=== PATIENT | male | born 1945 | race Caucasian/White ===

== ENCOUNTER → 2020-12-29 | Outpatient (CLI) | payer MEDICARE ==
--- NOTE | 2020-12-29 17:36 | ECHOF ---
Referral Reason:R94.31 Abnormal EKG MEASUREMENTS -------- HEIGHT: 157.5 cm WEIGHT: 83.9 kg BP: IVSd: 1.2 cm (0.6 - 1.1) LVIDd: 4.3 cm (3.9 - 5.3) LVPWd: 1.1 cm (0.6 - 1.1) EDV(Teich): 81 ml IVSs: 1.2 cm LVIDs: 3.0 cm LVPWs: 1.6 cm %IVS Thck: 2 % ESV(Teich): 34 ml EF(Teich): 58 % %FS: 30 % SV(Teich): 47 ml LA Diam: 3.4 cm (2.7 - 3.8) RVIDd: 2.8 cm (< 3.3) LALs A4C: 5.2 cm LAAs A4C: 18.2 cm LAESV A-L A4C: 54 ml LAESV MOD A4C: 51 ml LALs A2C: 5.7 cm LAAs A2C: 19.8 cm LAESV A-L A2C: 58 ml LAESV MOD A2C: 55 ml LAESV(A-L): 59 ml LAESV Index (A-L): 31.95 ml/m Ao Diam: 3.0 cm (2.0 - 3.7) LA Diam: 3.9 cm (2.7 - 3.8) AV Cusp: 1.5 cm (1.5 - 2.6) EPSS: 0.4 cm MV E Aj: 0.56 m/s MV DecT: 189 ms MV Dec [place]: 3.0 m/s MV A Aj: 0.81 m/s MV E/A Ratio: 0.69 MV PHT: 55 ms TR Vmax: 1.56 m/s TR maxP.70 mmHg RAP: 5.00 mmHg RVSP: 14.70 mmHg MV EF SLOPE: 76.94 mm/s (70 - 150) MV EXCURSION: 14.23 mm (> 18.000) FINDINGS -------- Sinus rhythm. This was a technically good study. LV size, wall thickness and systolic function are normal, with an EF greater than 55%. The left georgi tricular size is normal. The right ventricle is normal in size. LA is midly dilated 29-33ml/m2. The right atrial size is normal. The aortic valve is trileaflet, and appears structurally normal. No aortic stenosis or regurgitation. Mild mitral regurgitation is present. Mild tricuspid regurgitation present. Right ventricular systolic pressure is normal at < 35 mmHg. Trace/mild (physiologic) pulmonic regurgitation. There is no pericardial effusion. CONCLUSIONS -------- 1. LV size, wall thickness and systolic function are normal, with an EF greater than 55%. 2. The left ventricular size is normal. 3. The right ventricle is normal in size. 4. LA is midly dilated 29-33ml/m2. 5. The right atrial size is normal. 6. The aortic valve is trileaflet, and appears structurally normal. No aortic stenosis or regurgitati on. 7. Mild mitral regurgitation is present. 8. Mild tricuspid regurgitation present. 9. Trace/mild (physiologic) pulmonic regurgitation. 10. There is no pericardial effusion. MANAGER OF DISASTER RECOVERY: Geni Lawson RDCS
== END | disposition home or self-care (01) ==
LOC: RADECHMAIN 11:46
PROVIDERS: ATTEND Family Medicine
DX: I34.0 Nonrheumatic mitral (valve) insufficiency (principal); I07.1 Rheumatic tricuspid insufficiency; R94.31 Abnormal electrocardiogram [ECG] [EKG]
CPT/HCPCS: 93306

== ENCOUNTER → 2021-02-22 | Outpatient (CLI) | payer MEDICARE ==
[2021-02-22 15:49] LABS: ALT 20 U/L (10-49); AST 18 U/L (14-35); Chol/HDL Ratio 3.03 Ratio; LDL Cholesterol,Calculated 51.9 mg/dL (0.0-131.0); VLDL Calculation 18.42 mg/dL (5.00-40.00)
== END | disposition home or self-care (01) ==
LOC: LABWHC1 07:52
PROVIDERS: ATTEND Internal Medicine Interventional Cardiology
DX: E78.2 Mixed hyperlipidemia (principal)
CPT/HCPCS: 36415; 80061; 84450; 84460

== ENCOUNTER → 2021-04-28 | Outpatient (CLI) | payer MEDICARE ==
--- NOTE | 2021-04-28 15:28 | US ---
EXAMINATION TYPE: US kidneys/renal and bladder DATE OF EXAM: 04/28/2021 COMPARISON: NONE CLINICAL HISTORY: N18.2 CKD Stage 2. EXAM MEASUREMENTS: Right Kidney: 11.3 x 4.8 x 5.4 cm Left Kidney: 12.8 x 5.3 x 5.3 cm Right Kidney: No hydronephrosis or masses seen Left Kidney: echogenic shadowing area lower pole, there appears to be a cluster of stones, measures l arge Bladder: wnl as seen, not fully distended There is no evidence for hydronephrosis at this point in time. No masses are identified. The urina ry bladder is anechoic. Bilateral ureteral jets are seen. IMPRESSION: Nonobstructing left-sided nephrolithiasis.
== END | disposition home or self-care (01) ==
LOC: RADUSWWP 14:48
PROVIDERS: ATTEND Internal Medicine
DX: N18.2 Chronic kidney disease, stage 2 (mild) (principal); N20.0 Calculus of kidney
CPT/HCPCS: 76770

== ENCOUNTER → 2021-09-06 | Outpatient (CLI) | payer MEDICARE ==
[2021-09-06 15:57] LABS: ALT 16 U/L (10-49); AST 16 U/L (14-35); African American GFR (CKD) 61.7 (60.0-200.0); Albumin 4.2 g/dL (3.8-4.9); Albumin/Globulin Ratio 2.07 (1.60-3.17); Alkaline Phosphatase 57 U/L (41-126); BUN/Creat Ratio 23.21 Ratio (12.00-20.00); Blood Urea Nitrogen 30.4 mg/dL (9.0-27.0); Calcium 9.5 mg/dL (8.7-10.3); Carbon Dioxide 25.7 mmol/L (20.0-27.5); Chloride 106 mmol/L (96-109); Chol/HDL Ratio 3.14 Ratio; Glucose 111 mg/dL (70-110); LDL Cholesterol,Calculated 53.4 mg/dL (0.0-131.0); Non-African American GFR(CKD) 53.3 (60.0-200.0); Potassium 4.7 mmol/L (3.5-5.5); Sodium 143 mmol/L (135-145); Total Protein 6.2 g/dL (6.2-8.2)
== END | disposition home or self-care (01) ==
LOC: LABWHC1 07:13
PROVIDERS: ATTEND Nurse Practitioner Adult Health
DX: I10 Essential (primary) hypertension (principal); E78.2 Mixed hyperlipidemia
CPT/HCPCS: 36415; 80053; 80061

== ENCOUNTER → 2021-11-21 | Outpatient (CLI) | payer MEDICARE ==
--- NOTE | 2021-11-21 21:19 | CT ---
EXAMINATION TYPE: CT urogram wo/w con CT DLP: 3890 mGycm, Automated exposure control for dose reduction was used. DATE OF EXAM: 11/21/2021 4:34 PM COMPARISON: CLINICAL INDICATION:Male, 76 years old with history of R97.20 ELEVATED PSA LEVELS;, Hematuria. Elevat ed PSA levels. TECHNIQUE: Urogram with imaging of the abdomen and pelvis. Coronal and sagittal reformats were performed. 2D and 3D reconstructions are performed to assist visualization of the urinary tract on a separate workstat ion. Contrast used:70cc mL of Isovue 300 with IV Contrast, Oral contrast used: None. FINDINGS: GENITOURINARY: RIGHT KIDNEY AND URETER: No calculi. No hydronephrosis or hydroureter. No renal mass or other lesions . No urothelial lesions: no filling defect, dilation, stricture or wall thickening. LEFT KIDNEY AND URETER: Multiple renal pelvis and calyx calculi. No mass identified. Renal calculi me asuring up to 22 x 12 mm. There is a hyperdense 12 mm cyst measuring 72 Hounsfield units on noncontra st imaging. Consistent with a proteinaceous/hemorrhagic cyst. No hydronephrosis or hydroureter. No re nal mass or other lesions. No urothelial lesions: no filling defect, dilation, stricture or wall thic [place]. URINARY BLADDER: Limited evaluation secondary to partial filling of the bladder with excreted IV cont rast. No calculi or obvious mass. REPRODUCTIVE: Prominent measuring up to 4.9 cm in transverse dimension. There is median lobe hypertro phy changes. ABDOMEN LIVER: Unremarkable. GALLBLADDER AND BILE DUCTS: The gallbladder is surgically absent. PANCREAS: Unremarkable. SPLEEN: Unremarkable. ADRENAL GLANDS: Left adrenal mass with heterogenous appearance and some calcification measuring 6.4 b y 4.5 x 4.2 cm. STOMACH AND BOWEL: No evidence of bowel obstruction. Gastric lumen is distended with ingested conten ts. Scattered clonic diverticula are seen throughout the colon. Appendix is normal. Third portion duo denal diverticulum noted extending posteriorly towards the aorta. PERITONEUM: No evidence of pneumoperitoneum, free fluid, or adenopathy. VASCULATURE: No aortic aneurysm. Scattered atherosclerosis of the arterial vasculature. MUSCULOSKELETAL: No acute osseous abnormalities. Slightly heterogenous appearance to the bone marrow throughout the spine. Benign-appearing lucent lesion in the left proximal femur with thin sclerotic r im. There are several lucencies within the vertebral column including L4, L1, T12, and T8. SOFT TISSU E/ABDOMINAL WALL: Unremarkable. LOWER CHEST: Streaky atelectasis is seen within lung bases. Mild heart is mildly enlarged for size. C oronary artery atherosclerosis is present. IMPRESSION: 1. Left renal pelvis and calyces calculi. No evidence of hydronephrosis. 2. No evidence of urothelial mass/lesion. 3. Left adrenal heterogenous mass measuring up to 6.4 cm with some calcifications. Further evaluation with MRI with and without IV contrast and serum markers is recommended. Findings may represent malig mignon versus sequela of prior trauma. Correlation with priors at outside institutions may be of benef it. 4. Nonspecific lucencies seen scattered throughout the spine. Involving T8, T12, L1 and L4. The absen ce of known diagnosis of cancer this may represent contrast focal fat. These can be further evaluated with MRI of the thoracic and lumbar spine with and without IV contrast if clinically warranted.
== END | disposition home or self-care (01) ==
LOC: RADCTMAIN 14:04
PROVIDERS: ATTEND Internal Medicine
DX: R97.20 Elevated prostate specific antigen [PSA] (principal)
CPT/HCPCS: 82565; 84520; 74178; 36415; 74400; Q9967

== ENCOUNTER → 2022-02-20 | Outpatient (CLI) | payer MEDICARE ==
--- NOTE | 2022-02-20 12:43 | MR ---
EXAMINATION TYPE: MR chaimine/lspine wo con DATE OF EXAM: 02/20/2022 9:01 AM CLINICAL INDICATION:Male, 76 years old with history of M41.86 FORMS OF SCOLIOSIS, LUMBAR REGION FORMS OF SCOLIOSIS COMPARISON: CT 11/21/2021 TECHNIQUE: Multi planar, multi sequence imaging was performed utilizing: T1-weighted, T2-weighted, a nd turbo inversion recovery imaging of the thoracic and lumbar spine. IV Contrast: None. FINDINGS: Alignment: The thoracic and lumbar vertebral bodies have preserved heights and alignment. No evidenc e of lateral curvature to suggest scoliosis of the visualized spine. Cord: The spinal cord is unremarkable with regards to their signal intensity and morphology. Bones/Discs: Bone signal is within normal limits. Multilevel degenerative disc disease is noted and most pronounced at the L1-L5. Scattered high T2/T1 signal probable vertebral body hemangiomas. Acute Schmorl's node at the superior endplate of L4 suggested with some reactive edema on inversion recover y sequences. THORACIC: No evidence significant spinal canal or neural foraminal stenosis. Spinal cord is within no rmal limits. LUMBAR: L1-L2: No evidence of significant spinal canal stenosis or neural foraminal stenosis. L2-L3: Disc bulge and facet joint arthropathy result in mild spinal canal and mild bilateral neural f oraminal stenosis. L3-L4: Disc bulge and facet joint arthropathy result in mild spinal canal and moderate right and mild left neural foraminal stenosis. L4-L5: Disc bulge and facet joint arthropathy result in no significant spinal canal and moderate left and mild right neural foraminal stenosis. L5-S1: No evidence of significant spinal canal stenosis or neural foraminal stenosis. Other findings: None. IMPRESSION: 1. No definitive evidence of disc herniation or significant spinal canal stenosis. 2. Multilevel disc degeneration with associated osteoarthritic changes worse at L3-L4 on the right a nd L4-L5 on the left with moderate neural foraminal stenosis. 3. No evidence of scoliosis. 4. Acute Schmorl's node at the superior endplate of L4.
== END | disposition home or self-care (01) ==
LOC: RADMRIMAIN 07:35
PROVIDERS: ATTEND Internal Medicine
DX: M51.36 Other intervertebral disc degeneration, lumbar region (principal); M47.816 Spondylosis without myelopathy or radiculopathy, lumbar region; M51.46 Schmorl's nodes, lumbar region; M48.061 Spinal stenosis, lumbar region without neurogenic claudication; M99.73 Connective tissue and disc stenosis of intervertebral foramina of lumbar region; M41.86 Other forms of scoliosis, lumbar region; M41.34 Thoracogenic scoliosis, thoracic region
CPT/HCPCS: 72146; 72148

== ENCOUNTER → 2022-02-20 | Outpatient (CLI) | payer MEDICARE | END | disposition home or self-care (01) | LOC: LABWHC1 07:02 | PROVIDERS: ATTEND Urology | DX: D35.00 Benign neoplasm of unspecified adrenal gland (principal) | CPT/HCPCS: 36415; 82088; 82533; 83835; 84244 ==

== ENCOUNTER → 2022-02-21 | Outpatient (CLI) | payer MEDICARE ==
--- NOTE | 2022-02-22 20:38 | MR ---
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 Adrenal cancer COMPARISON: CT scan abdomen from 11/21/2021. TECHNIQUE: Multiplanar multi-sequence imaging was performed without contrast. Post contrast imaging was performed. IV Contrast: 8 cc Gadavist FINDINGS: LOWER CHEST: No gross irregularity. ABDOMEN Liver: Unremarkable. Gallbladder and Bile ducts: Unremarkable. Pancreas: Unremarkable. Spleen: Unremarkable. Adrenal glands: Enlarged left adrenal mass measuring up to 6.5 x 4.4 x 4.2 cm similar to prior. There is somewhat heterogenous enhancement pattern of this lesion. There appears to be loss of fat plane a gainst the stomach. Kidneys: Left high T2 low T1 renal cysts Stomach and Bowel: Unremarkable as visualized. Peritoneum: No evidence of pneumoperitoneum, free fluid, or adenopathy. Vasculature: Unremarkable. No aortic aneurysm. Abdominal wall: Unremarkable. Musculoskeletal: The osseous structures appear intact. IMPRESSION: Redemonstration of left adrenal mass concerning for malignancy until proven otherwise. This measures similarly at 6.5 x 4.4 cm comparing to prior CT on 11/21/2021. There is loss of fat plane the stomach which is similar to prior CT microinvasion not excluded. No definitive evidence for metastatic diseas e at this time. Consider consider tissue sampling.
== END | disposition home or self-care (01) ==
LOC: RADMRIMAIN 10:48
PROVIDERS: ATTEND Internal Medicine
DX: C74.92 Malignant neoplasm of unspecified part of left adrenal gland (principal); E27.9 Disorder of adrenal gland, unspecified
CPT/HCPCS: 74183; A9585

== ENCOUNTER → 2022-03-19 | Outpatient (CLI) | payer MEDICARE ==
[2022-03-19 10:46] LABS: ALT 20 U/L (10-49); AST 16 U/L (14-35); African American GFR (CKD) 59.5 (60.0-200.0); Albumin 4.3 g/dL (3.8-4.9); Albumin/Globulin Ratio 2.24 (1.60-3.17); Alkaline Phosphatase 59 U/L (41-126); Blood Urea Nitrogen 30.1 mg/dL (9.0-27.0); Calcium 9.6 mg/dL (8.7-10.3); Carbon Dioxide 25.3 mmol/L (20.0-27.5); Chloride 105 mmol/L (96-109); Chol/HDL Ratio 2.92 Ratio; Globulin 1.9 g/dL (1.6-3.3); Glucose 105 mg/dL (70-110); LDL Cholesterol,Calculated 58.3 mg/dL (0.0-131.0); Non-African American GFR(CKD) 51.4 (60.0-200.0); Potassium 4.9 mmol/L (3.5-5.5); Sodium 143 mmol/L (135-145); Total Protein 6.2 g/dL (6.2-8.2)
== END | disposition home or self-care (01) ==
LOC: LABWHC1 07:00
PROVIDERS: ATTEND Internal Medicine Interventional Cardiology
DX: I10 Essential (primary) hypertension (principal); E78.2 Mixed hyperlipidemia
CPT/HCPCS: 36415; 80053; 80061

== ENCOUNTER → 2022-06-22 | Outpatient (CLI) | payer MEDICARE ==
[2022-06-22 09:17] LABS: Protein/Creatinine Ratio,Urine 0.28
[2022-06-22 11:14] LABS: Basophils # (A) 0.05 X 10*3/uL (0.00-0.10); Basophils % (A) 0.9 %; Eosinophils # (A) 0.19 X 10*3/uL (0.04-0.35); Eosinophils % (A) 3.3 %; Immature Grans, Automated 0.4 %; Lymphocytes # (A) 1.36 X 10*3/uL (0.90-5.00); Lymphocytes % (A) 23.9 %; MCHC 32.5 g/dL (32.0-37.0); MCV 92.4 fL (80.0-97.0); Monocytes # (A) 0.53 X 10*3/uL (0.20-1.00); Monocytes % (A) 9.3 %; NRBC Per 100 WBC 0 /100 WBCS (0.0-0.0); Neutrophils # (A) 3.53 X 10*3/uL (1.80-7.70); Neutrophils % (A) 62.2 %; Platelet Count 227 X 10*3/uL (140-440); RBC 4.33 X 10*6/uL (4.40-5.60); RDW 13.2 % (11.5-14.5); WBC 5.68 X 10*3/uL (4.50-10.00)
[2022-06-22 12:10] LABS: ALT 19 U/L (10-49); AST 16 U/L (14-35); African American GFR (CKD) 52.9 (60.0-200.0); Albumin/Globulin Ratio 1.86 (1.60-3.17); Alkaline Phosphatase 79 U/L (41-126); BUN/Creat Ratio 18.24 Ratio (12.00-20.00); Calcium 9.7 mg/dL (8.7-10.3); Carbon Dioxide 25.6 mmol/L (20.0-27.5); Chloride 104 mmol/L (96-109); Chol/HDL Ratio 3.39 Ratio; Globulin 2.2 g/dL (1.6-3.3); Glucose 105 mg/dL (70-110); LDL Cholesterol,Calculated 47.7 mg/dL (0.0-131.0); Non-African American GFR(CKD) 45.6 (60.0-200.0); Phosphorus 3.7 mg/dL (2.4-5.1); Potassium 4.3 mmol/L (3.5-5.5); Sodium 141 mmol/L (135-145); Total Protein 6.2 g/dL (6.2-8.2); Uric Acid 3.8 mg/dL (3.7-8.7)
[2022-06-22 13:24] LABS: Appearance,Urine Clear (Clear); Bilirubin,Urine Negative (Negative); Blood,Urine Moderate (Negative); Color,Urine Yellow (Yellow); Ketones,Urine Negative (Negative); Nitrite,Urine Negative (Negative); PH, Urine 5.5 (5.0-8.0); Specific Gravity,Urine 1.024 (1.001-1.030); Urobilinogen,Urine 0.2 (0.2,1.0)
[2022-06-22 13:48] LABS: Bacteria,Urine None Seen /HPF (None Seen)
== END | disposition home or self-care (01) ==
LOC: LABWHC1 07:25
PROVIDERS: ATTEND Internal Medicine
DX: I12.9 Hypertensive chronic kidney disease with stage 1 through stage 4 chronic kidney disease, or unspecified chronic kidney disease (principal); E11.22 Type 2 diabetes mellitus with diabetic chronic kidney disease; E11.42 Type 2 diabetes mellitus with diabetic polyneuropathy; N18.2 Chronic kidney disease, stage 2 (mild); E78.2 Mixed hyperlipidemia; R11.2 Nausea with vomiting, unspecified
CPT/HCPCS: 36415; 80053; 80061; 81001; 82024; 82043; 82306; 82533; 82570; 83036; 83735; 83970; 84100; 84156; 84439; 84443; 84550; 85025

== ENCOUNTER → 2022-07-27 | Outpatient (CLI) | payer MEDICARE ==
--- NOTE | 2022-07-27 09:34 | MR ---
EXAMINATION TYPE: MR Prostate wo/w con DATE OF EXAM: 07/27/2022 COMPARISON: CT urogram November 21, 2021 INDICATION: Elevated PSA PSA: 8.20 ng/ml on July 04, 2022 increased from 6.70 on February 14, 2022 and 6.20 on June 21, 2021 Recent Biopsy and Date: None Pathology Report (If Applicable): n/a TECHNIQUE: Examination was performed using a 3T MRI without an endorectal coil. Multiparametric imaging was perf ormed with T2 mutliplanar sequences, axial diffusion weighted imaging and dynamic contrast enhanced i maging, utilizing 8.5 mL intravenous Gadavist gadolinium contrast. FINDINGS: PROSTATE VOLUME: 5.0 cm SI x 4.0 cm AP x 5.1 cm LR Vol= 53.4 cc PSA DENSITY: 0.15 ng/ml/cc Enlarged prostate consistent with BPH. Areas of mild diminished signal on ADC mapping seen in the jas ateral peripheral zones. There is more focal 6 mm area of more markedly diminished signal in the left peripheral zone abutting the capsule having T2 hypointensity images 60 and 68 series 802 at mid zone level having. Increased signal on diffusion-weighted imaging. PIRADS 4 lesion. Central transitional zone shows heterogeneity. No suspicious T2 hypointense areas. Prostate capsule is preserved. Seminal vesicles appear within normal limits. Bladder shows mild to mo derate trabeculation and wall thickening. No suspicious bowel dilatation. No free fluid. In the left proximal femur there is round 1.5 cm T2 hy perintense lesion axial image 8 series 201 and coronal image 13 favor a benign etiology correlates to round lucent lesion with thin sclerotic margin on CT favor nonaggressive etiology IMPRESSION: Enlarged prostate consistent with BPH. Suspicious 6 mm lesion left mid zone on prostate M RI Highest Assessment Category: 4 MRI Stage: T0 N0 M0 based on review of pelvic images. False negative rates for MRI range from 5-20% depending on risk profile. Assessment Categories: 1 ? Very low (clinically significant cancer is highly unlikely to be present) 2 ? Low (clinically significant cancer is unlikely to be present) 3 ? Intermediate (the presence of clinically significant cancer is equivocal) 4 ? High (clinically significant cancer is likely to be present) 5 ? Very high (clinically significant cancer is highly likely to be present) Locations: PZ = peripheral zone; TZ = transition zone CZ=central zone; AFS = anterior fibromuscular stroma a=anterior half (i.e. PZa=anterior half of peripheral zone); pm= posterior medial (i.e PZpm) pl = postero-lateral (i.e. PZpl); p = posterior half (i.e. TZp) ; a = anterior half (i.e TZa or P Za) Other: N=no or no; E= equivocal; Y=yes EPE = extraprostatic extension NVB = neurovascular bundle NA = not applicable/not available
== END | disposition home or self-care (01) ==
LOC: RADMRIMAIN 06:49
PROVIDERS: ATTEND Urology
DX: N40.0 Benign prostatic hyperplasia without lower urinary tract symptoms (principal); R97.20 Elevated prostate specific antigen [PSA]
CPT/HCPCS: 72197; A9585

== ENCOUNTER → 2022-09-18 | Outpatient (CLI) | payer MEDICARE ==
[2022-09-18 16:27] LABS: Appearance,Urine Clear (Clear); Bilirubin,Urine Negative (Negative); Blood,Urine Small (Negative); Color,Urine Yellow (Yellow); Ketones,Urine Negative (Negative); Nitrite,Urine Negative (Negative); PH, Urine 6.5; Specific Gravity,Urine 1.024 (1.001-1.030); Urobilinogen,Urine 0.2 E.U./DL
[2022-09-18 16:33] LABS: Bacteria,Urine None Seen (None Seen)
[2022-09-18 16:37] LABS: Basophils # (A) 0.05 X 10*3/uL (0.00-0.10); Basophils % (A) 0.9 %; Eosinophils # (A) 0.09 X 10*3/uL (0.04-0.35); Eosinophils % (A) 1.6 %; HCT 46.5 % (39.6-50.0); HGB 14.3 d/dL (12.0-15.0); Lymphocytes # (A) 1.53 X 10*3/uL (0.90-5.00); Lymphocytes % (A) 27.5 %; MCH 29.1 pg (27.0-32.0); MCHC 30.8 d/dL (32.0-37.0); MCV 94.5 FL (80.0-97.0); Mean Platelet Volume 11.1 FL (9.5-12.2); Monocytes # (A) 0.47 X 10*3/uL (0.20-1.00); Monocytes % (A) 8.4 %; NRBC Per 100 WBC 0 X 10*3/uL (0.00-0.01); Neutrophils % (A) 61.1 %; Platelet Count 191 X 10*3/uL (140-440); RBC 4.92 X 10*6/uL (4.40-5.60); RDW 13.5 % (11.5-14.5); WBC 5.57 X 10*3/uL (4.50-10.00)
[2022-09-18 16:57] LABS: BUN/Creat Ratio 21.87 Ratio (12.00-20.00); Blood Urea Nitrogen 32.8 mg/dL (9.0-27.0); Calcium 9.7 mg/dL (8.7-10.3); Carbon Dioxide 26.4 mmol/L (21.6-31.8); Chloride 106 mmol/L (96-109); Glucose 140 mg/dL (70-110); Potassium 4.4 mmol/L (3.5-5.5); Sodium 142 mmol/L (135-145)
== END | disposition home or self-care (01) ==
LOC: LABPAT 08:13
PROVIDERS: ATTEND Urology
DX: Z01.812 Encounter for preprocedural laboratory examination (principal); R97.20 Elevated prostate specific antigen [PSA]
CPT/HCPCS: 80048; 81001; 85025; 87086

== ENCOUNTER 2022-09-25 10:05 | Day surgery (SDC) | payer MEDICARE ==
--- NOTE | 2022-09-18 16:22 | P.HPIHPCON ---
History of Present Illness H&P Date: 09/18/22 Chief Complaint: elevated PSA This is a 77 yo male with hx of elevated PSA underwent prostate MRI which showed PIRAD 4 lesion at left mid gland. Option of MRI fusion biopsy was discussed with him aware of risk of bleeding, infection and false negative biopsy. He understood all the risk and agreed to proceed with MRI fusion biopsy Consent for Procedure: I have explained the operation/procedure to the patient, including the risks, benefits, side effects, alternative therapies (including not receiving the proposed treatment or service), the likelihood of the patient achieving his/her goals, and potential recuperation problems for the procedure/sedation/analgesia, as well as any blood products, if indicated. I also explained to the patient the risks, benefits and side effects of the alternatives, as well as the risks related to not receiving the proposed procedure, care, treatment, or services. Surgical - Exam - General no distress, no pain - Eyes normal ocular movement, no pale - ENT normal nares, normal mucosa - Respiratory normal expansion, normal respiratory effort Assessment and Plan Assessment: OR for MRI fusion biopsy
[2022-09-19 15:11] VITALS: BMI 26.2
[~2022-09-25 10:05] MED LIST: DEXAMETHASONE SOD PHOSPHATE 4 MG/ML 1 ML VIAL IV ONE; GENTAMICIN 120 MG in SODIUM CHLORIDE 0.9% 100 ML IVPB PRN; HYDROmorphone 0.5 MG/0.5 ML SYRINGE IVP PRN; LACTATED RINGERS 1,000 ML IV SCH; LIDOCAINE 1% (10MG/ML) FOR IV START INTRADERMA PRN; MIDAZOLAM 2 MG/2 ML VIAL IV PRN; ONDANSETRON 4 MG/2 ML VIAL IVP ONE
[2022-09-25 10:50] VITALS: TEMP 97.3
[2022-09-25 11:06] LABS: Glucose,Whole Blood 108 mg/dL (70-110)
[2022-09-25] MEDS ORDERED: PROPOFOL 10 MG/ML 20 ML VIAL IV ONE (11:53)
--- NOTE | 2022-09-25 12:22 | P.OP ---
Date of Procedure: 09/25/22 Preoperative Diagnosis: elevated PSA Postoperative Diagnosis: same Procedure(s) Performed: Prostate MRI fusion biopsies Implants: none Anesthesia: NENO Surgeon: Jared Velasquez Indications for Procedure: This is a 77 yo male with hx of elevated PSA underwent prostate MRI which showed PIRAD 4 lesion at left mid gland. Option of MRI fusion biopsy was discussed with him aware of risk of bleeding, infection and false negative biopsy. He understood all the risk and agreed to proceed with MRI fusion biopsy Description of Procedure: The patient was taken to the operating room and placed in the left lateral decubitus position. The Ze-gen transrectal ultrasound probe was placed intrarectally. It was then placed within the stand of the [employer] MRI/TRUS Fusion for Prostate Biopsy system. The prostate was imaged in both the axial and sagittal planes, revealing a prostate volume of 42 mL. Using the Biopsy gun, 4 biopsies were obtained from the target lesion, there were was one lesion. The remaining 12 biopsies of the peripheral zone were obtained utilizing a standard template. Once the procedure was completed, the ultrasound probe was removed. The patient tolerated the procedure well was taken to the recovery room stable condition
[2022-09-25 13:06] VITALS: BP 132/63; PULSE 54; RESP 20
== END 2022-09-25 13:10 | disposition home or self-care (01) ==
LOC: OR 10:05
PROVIDERS: ATTEND Urology
DX: C61 Malignant neoplasm of prostate (principal); I10 Essential (primary) hypertension; E78.5 Hyperlipidemia, unspecified; E11.9 Type 2 diabetes mellitus without complications; N28.9 Disorder of kidney and ureter, unspecified; Z79.82 Long term (current) use of aspirin; Z79.84 Long term (current) use of oral hypoglycemic drugs; Z79.899 Other long term (current) drug therapy
CPT/HCPCS: 88344; 88305; 55700; 76942; J1100; J2405; J1580; J2704

== ENCOUNTER → 2023-04-12 | Outpatient (CLI) | payer MEDICARE ==
--- NOTE | 2023-04-12 12:41 | XR ---
EXAMINATION TYPE: XR chest 2V DATE OF EXAM: 04/12/2023 COMPARISON: NONE HISTORY: Shortness of breath TECHNIQUE: Frontal and lateral views of the chest are obtained. FINDINGS: Scattered senescent parenchymal changes noted. Hyperinflation compatible with COPD. No evidence for infiltrate. No evidence for atelectasis. Heart size is stable. Mediastinal structures are stable and grossly unremarkable. No evidence for hilar prominence. Degenerative changes dorsal spine. IMPRESSION: 1. No evidence for acute pulmonary disease.
== END ==
LOC: RADXRMAIN 12:10
PROVIDERS: ATTEND Internal Medicine
DX: J06.9 Acute upper respiratory infection, unspecified (principal)
CPT/HCPCS: 71046